=== PATIENT | female | born 1985 | race Caucasian/White ===

== ENCOUNTER 2020-08-27 13:53 | Outpatient (CLI) | payer BC, SELFPAY ==
[2020-08-27 15:04] LABS: Hematocrit 27.6 % (37.0-47.0); Hemoglobin 8.7 g/dL (12.0-15.0); Mean Corpuscular HGB Conc 31.5 g/dl (32-36); Mean Corpuscular Hemoglobin 24.6 pg (26-34); Mean Corpuscular Volume 78.2 fl (80-100); Mean Platelet Volume 10.4 fl (7.4-10.4); Platelet Count Result 265 k/mm3 (150-375); Red Blood Count 3.53 M/mm3 (4.2-5.4); Red Cell Distribution Width 14.7 % (11.5-14.5); White Blood Count 8.6 K/mm3 (4.5-10.0)
[2020-08-28 10:15] LABS: Rapid Plasma Reagin Non-Reactive (NonReactive)
== END 2020-08-27 13:54 | disposition home or self-care (01) ==
PROVIDERS: PCP Internal Medicine; Visit Provider Obstetrics & Gynecology
DX: Z01.812 Encounter for preprocedural laboratory examination (principal); O34.218 Maternal care for other type scar from previous cesarean delivery; Z3A.39 39 weeks gestation of pregnancy
CPT/HCPCS: 36415; 85027; 86592; 86850; 86900; 86901

== ENCOUNTER 2020-08-28 10:00 | Inpatient (IN) | payer BC, SELFPAY ==
[2020-08-28] VITALS (28 sets, daily range): BP systolic 91–119; BP diastolic 51–79; PULSE 57–127; RESP 13–20; TEMP 36.3–36.7; O2SAT 98; BMI 37.0
--- NOTE | 2020-08-28 07:42 | PM.IMHP ---
H&P: HPI History of Present Illness Date/Time: 08/28/20 07:42 Chief complaint: Pre-admit Narrative: Maritza Matamoros is a 34 year old female T3 P2 whose last menstrual period was 12/21/2019/EDC of 09/02/2020, presents at 39 and 1 7 weeks gestation for repeat section and tubal ligation. Her has been uncomplicated and she is negative for group B strep. She desires permanent irreversible sterilization. This has been reviewed multiple times during her she asked to proceed Review of Systems Review of Systems: All systems reviewed & are unremarkable except as noted in HPI and below PMFSH Family History Family History Grandparent Diabetes mellitus, Onset Age: 74 Hypertension Cerebrovascular accident, Onset Age: 74 Other Family history of malignant neoplasm of breast Social History Social History Smoking status: Never smoker Second hand tobacco smoke exposure: No Alcohol intake: never Substance use: never Gender identity (if verbalized by the patient): Female Spiritual care concerns: No Meds Home Medications and Allergies Home Medications Medication Instructions Recorded Confirmed Type PNV cmb#95-ferrous fumarate-FA 1 tablet PO DAILY 08/11/20 08/11/20 History [] Allergies Allergy/AdvReac Type Severity Reaction Status Date / Time No Known Allergies Allergy Verified 02/26/18 13:24 Exam Const: General: no acute distress Eyes: General: appearance normal, both eyes and all related structures Neck: Neck: supple and no JVD Thyroid: thyroid normal Resp: Effort & Inspection: normal respiratory effort Auscultation: clear to auscultation bilaterally Cardio: Rate: regular rate Rhythm: regular rhythm GI: Inspection: non-distended GI Palp: Yes Soft to palpation, No Tenderness to palpation present (GI) and No Guarding due to palpation present (GI) Auscultation: normal bowel sounds : General: Yes bladder normal to palpation External Female Exam: normal external appearance Speculum Exam - Vagina: normal appearance of the vagina Speculum Exam - Cervix: normal appearance of the cervix Bimanual exam- vagina & uterus: other ( uterus soft and gravid) Skin: General skin exam: no rashes or lesions noted Extrem: General: normal to inspection and no edema Psych: Mental Status: mental status grossly normal Affect: normal affect Assessment and Plan Additional Plan impression: Term with previous section who desires permanent sterilization Plan: Repeat low-transverse section bilateral tubal ligation
--- NOTE | 2020-08-28 07:46 | WPDHPUPDATE1 ---
History and Physical Update Update Date/Time: 08/28/20 07:46 History and Physical has been reviewed, including an updated exam of the patient. There are NO changes in the patient's condition. Risks, benefits, and alternatives have been discussed and questions answered. Patient agrees to proceed with procedure.
--- NOTE | 2020-08-28 10:00 | LDADM ---
This patient, Maritza Matamoros, was admitted to Labor/Delivery/Recovery 118 on 08/28/20 at 10:00. Plans for labor, pain management and were discussed with patient. Patient/family oriented to hospital policies and general routines including ID bracelet, bed and alarms, visiting hours, pain management, procedures, bathroom and other care routines, personal items, smoking policy, room service/diet and guest tray routines, security routines, and visiting hours. Patient/Family are encouraged to report perceived risks to care and to ask questions if they do not understand what they are told or what they should do. See OBIX for further documentation.
--- NOTE | 2020-08-28 10:34 | WPDANESEPPF ---
Anes - Initial Pre Proc Eval Procedure: Operation Date: 08/28/20 12:00 Proposed Procedures p Repeat Section with Bilateral Tubal Ligation - Dawson Reese MD Date/Time: 08/28/20 10:34 Surgeon: Dawson Reese MD Pre Op Diagnosis: C/S Patient Data Age: 34 Gender: F Height: Weight: Last Vital Signs Pulse 127 H 08/28/20 10:15 BP 119/66 08/28/20 10:15 Allergies Allergy/AdvReac Type Severity Reaction Status Date / Time No Known Allergies Allergy Verified 02/26/18 13:24 Home Medications Medication Instructions Recorded Confirmed Type PNV cmb#95-ferrous fumarate-FA 1 tablet PO DAILY 08/11/20 08/11/20 History [] hydrocodone-acetaminophen [[place]] 1 tablet PO Q4H PRN #30 tablet 08/28/20 Rx Patient hx anesthesia problems: none Family hx anesthesia problems: none PMFSH Past Medical History Medical History (Updated 08/28/20 @ 10:34 by Dawson Frazier MD) Endometriosis Overweight Surgical History Surgical History (Updated 08/28/20 @ 10:34 by Dawson Frazier MD) H/O laparoscopy History of section Family History Family History Grandparent Diabetes mellitus, Onset Age: 74 Hypertension Cerebrovascular accident, Onset Age: 74 Other Family history of malignant neoplasm of breast Social History Social History Smoking status: Never smoker Second hand tobacco smoke exposure: No Alcohol intake: never Substance use: never Gender identity (if verbalized by the patient): Female Spiritual care concerns: No Anes - Eval Final PreProcedure Day of Procedure 08/28/20 10:34 Patient weight: overweight Heart: regular rate and rhythm Lungs: clear to auscultation Airway: Mallampati scale class II Neurological: alert and oriented Last oral intake: >/= 8 hours ASA classification: II Emergent: no Anesthetic plan: proceed Anesthesia type and monitoring: regional spinal and standard monitoring Informed Consent: The patient's anesthetic plan and its attendant risks and benefits were discussed with the patient/family/POA. Questions were solicited and answers provided to the satisfaction of the patient/family/POA.
[2020-08-28] MEDS: LACTATED RINGERS 1,000 ML 125 ML IV CONT (10:37)
--- NOTE | 2020-08-28 12:42 | P.OP_ITS ---
Procedure Note - Detailed Date of procedure: 08/28/20 Pre-op diagnosis: C/S Surgeon: Dawson Reese MD Postop diagnosis: Term /previous section /desires permanent sterilization Procedure: Repeat low-transverse section/bilateral tubal ligation via modified Thao method Anesthesia: Spinal Findings: Male 7 lb 9 oz with Apgars of 8 and 9 at 1 and 5 minutes respectively Complications: None Q BL: 465cc Description procedure: The patient was prepped draped in the normal sterile fashion and placed in the supine position. Under excellent spinal anesthetic the abdomen was entered in Pfannenstiel fashion and progressive layers to the fascia fascia was entered up about fashion bilaterally. The parietal peritoneum 0 by Alison clamps and entered by sharp dissection. This was carried superiorly and inferiorly to the dome of the bladder bladder blade was placed. Bladder flap was formed. Lateral it blade returned. Low-transverse incision made head delivered in the NILSON position the anterior posterior shoulders were delivered spontaneously. Cord clamped x2 and cut. passed off the table given Apgars of 8 [id number]. Cord blood was drawn. Placenta delivered intact manually P. Uterus delivered from the abdomen and wrapped in a moist to wel. After assuring no membranes or debris made in the uterus uterus was closed with continuous running 0 Vicryl in locking fashion from lateral edge to lateral edge. This was followed by a 2nd imbricating running locking 0 Vicryl from lateral edge to lateral edge. Hemostasis was assured the ovaries and tubes appeared within normal limits. Right fallopian tube was grasped in its midportion. A good knuckle tube was formed and free tied with 0 chromic. Peritoneum between severed and each leg the distal and proximal portions of the knuckle tube were free tied with 0 chromic. The portion between cut passed off the table and marked as portion right fallopian tube hemostasis was assured. Left fallopian tube was grasped in its midportion. A good knuckle of tube free tied with 0 chromic. The peritoneum between pierced and the distal and proximal legs were free tied with 0 chromic. Portion between cut and passed off the table marked as portion of left fallopian tube hemostasis was assured. The uterine incision inspected 1 last time noted be hemostatic. The uterus returned to the abdomen. The laps removed and accounted for. The fascia was then closed with continuous running 0 Vicryl from lateral edge to midline bilaterally. Irrigation the subcutaneous layer was then performed. The skin closed with 4 O Monocryl and glue. Q BL was 465cc. All sponge, needle, instrument counts were correct. There were no immediate complications
--- NOTE | 2020-08-28 13:41 | PC.NURSE ---
WELL...SWITCHED SIDES AFTER 20 MIN IN FOOTBALL HOLD. ASSESSMENT REMAINS WNL. IVF INFUSING WELL INTO LEFT WRIST.
[2020-08-28] MEDS: diphenhydrAMINE HCl INJ 50 MG/ML VIAL 25 MG IV PUSH (13:55)
[2020-08-28] MEDS: KETOROLAC 30 MG/ML VIAL (*BKC) IV PUSH ×2 (13:55→19:55)
[2020-08-28] MEDS: OXYTOCIN 30 UNITS/NS 500 ML 30 UNITS/500 ML BAG 125 UNITS IV CONT (14:55)
[2020-08-28] MEDS: HYDROcodone/acetaminophen (*CRX) 5-325 MG TABLET 1 TAB PO (19:24)
[2020-08-28] MEDS: DEXTROSE 5%/0.45% SOD CHL 1,000 ML 100 ML IV CONT (19:54)
[2020-08-29] MEDS: diphenhydrAMINE HCl INJ 50 MG/ML VIAL 25 MG IV PUSH (00:09)
[2020-08-29] MEDS: IBUPROFEN 600 MG TABLET PO ×4 (04:05→23:13)
[2020-08-29] MEDS: HYDROcodone/acetaminophen (*CRX) 5-325 MG TABLET 1 TAB PO ×4 (04:05→23:13)
[2020-08-29] MEDS: SIMETHICONE 80 MG TAB.CHEW PO ×3 (04:06→17:21)
[2020-08-29 05:00] VITALS: BP 107/51; PULSE 83; RESP 18; TEMP 36.6; O2SAT 97
[2020-08-29 05:35] LABS: Basophils Percent Auto 0.3 % (0.2-1.2); Eosinophils Absolute Auto 0.1 K/mm3 (0-0.3); Hematocrit 24.4 % (37.0-47.0); Hemoglobin 7.5 g/dL (12.0-15.0); Immature Granulocyte Absolute 0.11 K/mm3 (0.00-0.031); Immature Granulocyte Percent A 0.8 % (0-0.5); Lymphocytes Absolute Auto 0.72 K/mm3 (0.9-3.2); Lymphocytes Percent Auto 5.4 % (18.3-44.2); Mean Corpuscular HGB Conc 30.7 g/dl (32-36); Mean Corpuscular Hemoglobin 23.8 pg (26-34); Mean Corpuscular Volume 77.5 fl (80-100); Mean Platelet Volume 10.3 fl (7.4-10.4); Monocytes Absolute Auto 0.7 K/mm3 (0.1-0.6); Neutrophils Absolute Auto 11.7 K/mm3 (1.3-6.7); Neutrophils Percent Auto 87.5 % (45.5-73.1); Nucleated Red Blood Cells Perc 0.1 % (0.0-0.2); Platelet Count Result 239 k/mm3 (150-375); Red Blood Count 3.15 M/mm3 (4.2-5.4); Red Cell Distribution Width 14.9 % (11.5-14.5); White Blood Count 13.4 K/mm3 (4.5-10.0)
--- NOTE | 2020-08-29 07:40 | P.PNOB_ITS ---
OB - PN: Subj Subjective Date/time seen: 08/29/20 07:40 Patient comments: no complaints and pain well controlled baby status: doing well and nursing well OB - PN: Obj Data Labs CBC & Chem 7: 08/29/20 04:09 Labs: Laboratory Results - last 24 hr 08/29/20 04:09 WBC 13.4 H RBC 3.15 L Hgb 7.5 L Hct 24.4 L MCV 77.5 L MCH 23.8 L MCHC 30.7 L RDW 14.9 H Plt Count 239 MPV 10.3 Immature Gran % (Auto) 0.8 H Neut % (Auto) 87.5 H Lymph % (Auto) 5.4 L [place] % (Auto) 5.0 Eos % (Auto) 1.0 Baso % (Auto) 0.3 Lymph # (Auto) 0.72 L [place] # (Auto) 0.7 H Eos # (Auto) 0.1 Baso # (Auto) 0.0 Abs Immat Gran (auto) 0.11 H Absolute Neuts (auto) 11.7 H Absolute Nucleated RBC 0.0 Nucleated RBC % 0.1 OB - PN A/P Plan day: 1 Plan: routine care Time Spent With Patient Time: Total time spent is greater than 50% in coordination of care (as documented) at patient's floor/unit and/or counseling patient: Time with patient: less than 15 minutes Review of Systems Review of Systems: All systems reviewed & are unremarkable except as noted in HPI and below Exam Const: General: no acute distress Eyes: General: appearance normal, both eyes and all related structures Neck: Neck: supple and no JVD Thyroid: thyroid normal Resp: Effort & Inspection: normal respiratory effort Auscultation: clear to auscultation bilaterally Cardio: Rate: regular rate Rhythm: regular rhythm GI: Inspection: non-distended GI Palp: Yes Soft to palpation, No Tenderness to palpation present (GI) and No Guarding due to palpation present (GI) Auscultation: normal bowel sounds : General: Yes bladder normal to palpation External Female Exam: normal external appearance Speculum Exam - Vagina: normal vaginal discharge and No vaginal bleeding Speculum Exam - Cervix: nontender Bimanual exam- vagina & uterus: bladder normal to palpation and No Cervical tenderness present OB/external & speculum: No vaginal bleeding Skin: General skin exam: no rashes or lesions noted Extrem: General: normal to inspection and no edema Psych: Mental Status: mental status grossly normal Affect: normal affect
[2020-08-29] MEDS: DOCUSATE SODIUM 100 MG CAPSULE PO ×2 (08:44→17:21)
[2020-08-29] MEDS: MULTIVIT/MIN/PREN/FOL AC/IRON TABLET 1 TAB PO (08:44)
[2020-08-29] MEDS: POLYSACCHARIDE IRON COMPLEX 150 MG CAPSULE PO (08:44)
[2020-08-29 09:19] VITALS: BP 112/70; PULSE 80; RESP 18; TEMP 36.6; O2SAT 100
--- NOTE | 2020-08-29 11:23 | WPDANLDPN2 ---
Anes-Prog Note L&D Date/Time: 08/29/20 11:23 Comfortable throughout: section Neuraxial method: spinal Epidural/Spinal procedure site: clean & non-tender Neuro status: Neuro function grossly intact. Cardiovascular status: normal Respiratory status: normal Airway patency: baseline Mental status: baseline Post-Op hydration status: normal Vital Signs: Last Vital Signs Temp 36.6 C 08/29/20 09:19 Pulse 80 08/29/20 09:19 Resp 18 08/29/20 09:19 BP 112/70 08/29/20 09:19 Pulse Ox 100 08/29/20 09:19 Pain score (VAS): 4 I/O: Intake & Output 08/28/20 08/29/20 08/29/20 23:59 07:59 15:59 Intake Total 400 Output Total 1550 950 Balance -1150 -950 Post-procedural complaints: none Patient feedback: Patient satisfied with anesthetic care.
--- NOTE | 2020-08-29 11:23 | WPDANLDNPN2 ---
Anes-Prog Note L&D-Neuraxial Date/Time: 08/29/20 11:23 Neuraxial medications: intrathecal PF morphine Opiod-related complaints: none Patient feedback: Patient satisfied with post-operative pain management.
[2020-08-29 11:45] VITALS: BP 133/73; PULSE 88; RESP 16; TEMP 36.8; O2SAT 100
[2020-08-29] MEDS: TETANUS,DIPHTHERIA,AC PERTUSSIS ADULT (0.5 ML) BOOSTRIX IM (17:25)
[2020-08-29 19:10] VITALS: BP 127/63; PULSE 91; RESP 17; TEMP 36.6; O2SAT 98
[2020-08-30] MEDS: IBUPROFEN 600 MG TABLET PO (05:15)
[2020-08-30] MEDS: HYDROcodone/acetaminophen (*CRX) 5-325 MG TABLET 1 TAB PO ×2 (05:16→09:02)
--- NOTE | 2020-08-30 07:43 | PM.DS ---
DS: Admitting Diagnosis Admitting Diagnosis Admitting Diagnosis: C/S Desires sterilization DS: Summary Time Spent with Patient Time attestation: Total time spent providing and/or coordinating discharge services: Patient was admitted for repeat section and tubal ligation. The procedure was unremarkable. Her hospital course was unremarkable. Wound remained clean dry and intact. She was up, breast feeding, voiding the difficulty, passing gas, eating regular diet, and generally without complaints Exam Const: General: no acute distress Eyes: General: appearance normal, both eyes and all related structures Neck: Neck: supple and no JVD Thyroid: thyroid normal Resp: Effort & Inspection: normal respiratory effort Auscultation: clear to auscultation bilaterally Cardio: Rate: regular rate Rhythm: regular rhythm GI: Inspection: non-distended GI Palp: Yes Soft to palpation, No Tenderness to palpation present (GI) and No Guarding due to palpation present (GI) Auscultation: normal bowel sounds : General: Yes bladder normal to palpation External Female Exam: normal external appearance Speculum Exam - Vagina: normal vaginal discharge and No vaginal bleeding Speculum Exam - Cervix: nontender Bimanual exam- vagina & uterus: bladder normal to palpation and No Cervical tenderness present OB/external & speculum: No vaginal bleeding Skin: General skin exam: no rashes or lesions noted Extrem: General: normal to inspection and no edema Psych: Mental Status: mental status grossly normal Affect: normal affect DS: Data Data Completed and Pending Completed studies during hospitalization: Pending at discharge 08/28/20 12:25 Surgical [PTH] Routine Discharge Plan Discharge Attending physician on discharge: Dawson Reese Discharging Clinician: Dawson Reese Patient Disposition: Home, Self-Care Activity: may shower, no straining, may drive after 2 weeks and pelvic rest Diet: heart healthy Wound Care Instructions: follow printed instructions Patient Instructions: Antibiotic Form Stand Alone Forms: General Discharge Information Follow-up/Referrals: Dawson Reese MD [Physician] - Discharge Medications: Continued PNV cmb#95-ferrous fumarate-FA [] 28 mg iron- 800 mcg Tablet 1 tablet PO DAILY RF: 0 Date of admission: 08/28/20 10:00 Primary Care Provider: lCau,Isaias Gu Admitting Provider: Dawson Reese Attending physician on admission: Dawson Reese Condition: Stable
--- NOTE | 2020-08-30 07:45 | PM.OBPNVD ---
OB - PN: Subj Subjective Date/time seen: 08/30/20 07:45 Patient comments: no complaints and pain well controlled baby status: doing well and nursing well OB - PN: Obj Data Labs CBC & Chem 7: 08/29/20 04:09 OB - PN A/P Plan day: 2 Plan: routine care, discharge home and follow up 6 weeks (4 weeks) Time Spent With Patient Time: Total time spent is greater than 50% in coordination of care (as documented) at patient's floor/unit and/or counseling patient: Time with patient: less than 15 minutes Review of Systems Review of Systems: All systems reviewed & are unremarkable except as noted in HPI and below Exam Const: General: no acute distress Eyes: General: appearance normal, both eyes and all related structures Neck: Neck: supple and no JVD Thyroid: thyroid normal Resp: Effort & Inspection: normal respiratory effort Auscultation: clear to auscultation bilaterally Cardio: Rate: regular rate Rhythm: regular rhythm GI: Inspection: non-distended GI Palp: Yes Soft to palpation, No Tenderness to palpation present (GI) and No Guarding due to palpation present (GI) Auscultation: normal bowel sounds : General: Yes bladder normal to palpation External Female Exam: normal external appearance Speculum Exam - Vagina: normal vaginal discharge and No vaginal bleeding Speculum Exam - Cervix: nontender Bimanual exam- vagina & uterus: bladder normal to palpation and No Cervical tenderness present OB/external & speculum: No vaginal bleeding Skin: General skin exam: no rashes or lesions noted Extrem: General: normal to inspection and no edema Psych: Mental Status: mental status grossly normal Affect: normal affect
[2020-08-30 08:05] VITALS: BP 108/69; PULSE 81; RESP 18; TEMP 36.2; O2SAT 98
[2020-08-30] MEDS: POLYSACCHARIDE IRON COMPLEX 150 MG CAPSULE PO (09:01)
[2020-08-30] MEDS: DOCUSATE SODIUM 100 MG CAPSULE PO (09:01)
[2020-08-30] MEDS: MULTIVIT/MIN/PREN/FOL AC/IRON TABLET 1 TAB PO (09:01)
[2020-08-31 09:11] VITALS: BP 118/70; PULSE 82; RESP 20; TEMP 36.8; O2SAT 100
== END 2020-08-30 11:38 | disposition home or self-care (01) | DRG 785 ==
LOC: ANHLDR 10:02 → ANHOB2 15:04
PROVIDERS: Admitting Provider Obstetrics & Gynecology; PCP Internal Medicine; Visit Provider Obstetrics & Gynecology
PROC: 10D00Z1 Extraction of Products of Conception, Low, Open Approach (ICD-10-PCS; CPT 59514; principal; 2020-08-28 12:00)
PROC: 10D00Z1 Extraction of Products of Conception, Low, Open Approach (ICD-10-PCS; CPT 58605; 2020-08-28 12:00)
DX: O34.211 Maternal care for low transverse scar from previous cesarean delivery (principal); Z37.0 Single live birth; Z3A.39 39 weeks gestation of pregnancy; Z30.2 Encounter for sterilization; Z23 Encounter for immunization
CPT/HCPCS: 36415; 59025; 85025; 88302; 90471; 90653; 90715; A9270; G0008; J0131; J1200; J1885; J2405; J2590; J7120

== ENCOUNTER → 2021-03-08 11:27 | Outpatient (CLI) | payer BC, SELFPAY ==
--- NOTE | ~2021-03-08 | US_ITS ---
US right upper quadrant INDICATION: Unspecified abdominal pain PROCEDURE: Realtime right upper abdominal ultrasound. COMPARISON: No prior studies for comparison. FINDINGS: The pancreas is normal without focal mass or pancreatic ductal dilation. Liver echotexture is normal without focal mass or intrahepatic biliary dilatation. There is normal directional flow i n the portal vein. The gallbladder is normal without stones, gallbladder wall thickening or pericholecystic fluid. Comm on bile duct measures 2.5 mm. No sonographic Reyes's sign. IMPRESSION: 1: Normal limited abdominal ultrasound. Reviewed, dictated and finalized at location B.
== END ==
PROVIDERS: PCP Internal Medicine; Visit Provider Internal Medicine
DX: R10.9 Unspecified abdominal pain (principal)
CPT/HCPCS: 76705

== ENCOUNTER → 2021-10-09 02:33 | Outpatient (CLI) | payer BC, SELFPAY ==
[2021-10-09 21:19] LABS: SARS-CoV-2 RNA PCR Positive
== END ==
PROVIDERS: PCP Internal Medicine
DX: U07.1 COVID-19 (principal)
CPT/HCPCS: C9803; U0003; U0005